=== PATIENT | female | born 1995 | race Caucasian/White ===

== ENCOUNTER 2017-10-21 13:03 | Emergency (ER) | payer OTHER, SELFPAY ==
[2017-10-21 13:04] VITALS: BP 103/50; PULSE 101; RESP 18; TEMP 36.9; O2SAT 98; BMI 31.6
--- NOTE | 2017-10-21 13:29 | ED.DCSUM_ITS ---
- ER Visit Summary Date of Service: 10/21/17 Chief Complaint: Dizziness, feels off balance History of Present Illness: The patient is a 22 F who presents with the above symptoms. She has had this intermittently for the past 8 days. She states it feels like the room is spinning sometimes. She has had nausea without a headache. She has no history of this in the past. At times it is worse when she lays on her left hand side. Denies any ear pressure. She took no medications for this at home. Physical Examination: Vital signs reviewed. HEENT does show bilateral nystagmus. Heart is regular rate and rhythm without murmurs. Lungs are clear to auscultation. Abdomen is soft and nontender. Extremities reveal no edema. Skin exam normal. Neurologic exam normal. Test Results: Urinalysis and hCG negative Emergency Department Course and Treatment: Patient was given meclizine and Zofran. She feels slightly improved. She states that ever since she moved here from [facility] she has had issues with her ears. I feel this is likely the issue causing a little bit of vertiginous symptoms. I will give her meclizine, Zofran and a decongestant for home. She will follow up with her PCP Treatment Plan: [] Disposition: Discharge Impression: Dizziness This note was generated with [employer] dictation software. It may contain incorrect words, spelling, and punctuation that were not noted in review of the chart prior to signing ED Disposition - Plan for ED Patient: Chief Complaint: Dizziness Referrals: [facility] Doctor,Out of [Primary Care Provider] -
[2017-10-21] MEDS: Meclizine HCl 25 MG Tablet PO (13:43)
[2017-10-21 14:02] LABS: Color, Urine Yellow (Yellow); Glucose, Dipstick Normal (Normal); Internal QC Validated? YES +Cl - CLEAR BKGD; Ketone-Dipstick Negative (Negative); Leukocyte Esterase-Dipstick 25 /ul (Negative); Nitrite-Dipstick Negative (Negative); Occult Blood-Urine Negative /ul (Negative); Protein-Dipstick Negative (Negative); Specific Gravity, Urine 1.015 (1.002-1.030); Urine Bilirubin Dipstick Negative (Negative); Urine Clarity Clear (Clear); Urine Urobilinogen Normal (Normal)
[2017-10-21 14:05] LABS: Pregnancy, Urine Negative Negative
[2017-10-21 14:11] LABS: Bacteria RARE /hpf (None Seen); Red Blood Cells-Urine 0-5 SEEN /hpf (0-5); Squamous Epithelial Cells - UA 0-5 SEEN /hpf (5-10); White Blood Cells 0-5 SEEN /hpf (0-5)
[2017-10-21 14:12] LABS: Mucous, Urine 1+ /hpf (<or=2+)
--- NOTE | 2017-10-21 14:36 | ED.DEP ---
ED Disposition - Plan for ED Patient: Disposition: Home or Assisted Living Chief Complaint: Dizziness Instructions: ED BPV Vertigo Prescriptions: proMETHazine tablet [Phenergan] 25 mg PO Q6H PRN PRN #10 tab PRN Reason: Nausea Meclizine HCl [Antivert] 25 mg PO TID #20 tab Pseudoephedrine HCl [Sudafed] 30 mg PO TID #20 tab Referrals: [facility] Doctor,Out of [Primary Care Provider] -
[2017-10-21 14:46] VITALS: BP 100/67; PULSE 72; RESP 18
== END 2017-10-21 14:47 | disposition home or self-care (01) ==
PROVIDERS: Emergency Provider Emergency Medicine
DX: R42 Dizziness and giddiness (principal); R11.0 Nausea
CPT/HCPCS: 81001; 81025; 99283

== ENCOUNTER 2018-03-08 09:38 | Emergency (ER) | payer OTHER, SELFPAY ==
[2018-03-08 09:39] VITALS: BP 119/67; PULSE 109; RESP 18; TEMP 37; O2SAT 98; BMI 31.0
[2018-03-08] MEDS: 0.9% Normal Saline 1,000 ML 999 ML IV (10:52)
[2018-03-08] MEDS: Ketorolac 30 MG/ML Syringe IV (10:52)
--- NOTE | 2018-03-08 11:21 | ED.DCSUM_ITS ---
- ER Visit Summary Date of Service: 03/08/18 Chief Complaint: Sore throat History of Present Illness: The patient is a 23 F who presents with sore throat. For 2 and half weeks she has had fever sore throat myalgias and fatigue. She was recently diagnosed with mononucleosis. She has not had a fever for the past few days. She states that her fatigue and pain have worsened. She is able to swallow. She has been able to tolerate ibuprofen tablets and liquids. She states she is having difficulty sleeping because she feels that she cannot breathe when she lays flat. Physical Examination: Afebrile heart rate 109 vitals otherwise normal Patient does have posterior oropharyngeal erythema with symmetric tonsillar enlargement and exudates her airway is patent and uvula is midline she does not have trismus Heart regular rhythm slightly tachycardic Lungs are clear Abdomen soft I do not appreciate hepatosplenomegaly although examination is limited due to body habitus Test Results: Not indicated Emergency Department Course and Treatment: Patient was symptomatically treated with IV fluids Decadron and Toradol. She did develop some nausea after administration of medications and Zofran was ordered however by the time I reevaluated the patient she states her nausea and actually resolved and she did not want further medications. At this point she was advised to follow-up with her primary care physician as needed and understands to return for new or worsening symptoms and was discharged home. Treatment Plan: [] Disposition: Discharge Impression: Mononucleosis This note was generated with [employer] dictation software. It may contain incorrect words, spelling, and punctuation that were not noted in review of the chart prior to signing ED Disposition - Plan for ED Patient: Chief Complaint: Sore Throat Referrals: [facility] Doctor,Out of [Primary Care Provider] -
--- NOTE | 2018-03-08 11:21 | ED.DEP ---
ED Disposition - Plan for ED Patient: Chief Complaint: Sore Throat Instructions: ED Mononucleosis Referrals: [facility],Out of [Primary Care Provider] -
[2018-03-08 11:54] VITALS: BP 103/57; PULSE 61; RESP 16; O2SAT 98
== END 2018-03-08 11:57 | disposition home or self-care (01) ==
LOC: ED 10:18
PROVIDERS: Emergency Provider Emergency Medicine
DX: B27.90 Infectious mononucleosis, unspecified without complication (principal); F32.9 Major depressive disorder, single episode, unspecified; F41.9 Anxiety disorder, unspecified
CPT/HCPCS: 96361; 96374; 96375; 99283; J2405

== ENCOUNTER → 2018-05-21 16:32 | Outpatient (CLI) | payer OTHER, SELFPAY ==
[2018-05-21 17:23] LABS: Absolute Lymphocyte Count 1.99 X10^3/ul (0.83-4.51); Absolute Neutrophil Count 4.5 X10^3/uL (2.0-7.7); Basophil# 0.04 X10^3/uL; Basophil% 0.6 % (0-1); Eosinophil# 0.16 X10^3/uL; Eosinophils% 2.3 % (0-5); Hematocrit 38.5 % (37-47); Hemoglobin 12.7 g/dl (12.0-15.0); Lymphocyte # 1.99 X10^3/ul (4.0); Lymphocyte % 28.2 % (19-41); Mean Corpuscular Hgb 27.1 pg (27.0-32.0); Mean Corpuscular Volume 82.3 fL (81-99); Mean Platelet Vol. 10.5 fl (6.2-12.0); Monocyte% 5.7 % (0-10); Neutrophil # 4.45 X10^3/uL (2.7-7.7); Neutrophil % 63.1 % (47-70); Platelet Count 208 K/mm3 (150-450); RBC Distribution Width CV 12.7 % (11.6-14.6); RBC Distribution Width SD 37.7 fl (35.1-43.9); Red Blood Count 4.68 M/mm3 (4.2-5.4); White Blood Count 7.1 K/mm3 (4.4-11.0)
[2018-05-21 17:26] LABS: POSITIVE COUNT NO; POSITIVE DIFFERENTIAL NO; POSITIVE MORPHOLOGY NO
[2018-05-21 17:39] LABS: Internal QC Validated? YES +Cl - CLEAR BKGD; Monotest POSITIVE (Negative)
[2018-05-21 17:40] LABS: ALB/GLOB Ratio 0.9 RATIO (0.9-2.4); AST(SGOT) 13 U/L (15-37); Alanine Aminotransfer ALT/SGPT 18 U/L (13-56); Albumin, Serum 3.7 g/dL (3.2-5.0); Alkaline Phosphatase 83 U/L (45-117); Anion Gap 7 (5-15); BUN 15 mg/dL (7-18); BUN/Creat Ratio 21.2 RATIO (10-20); Calcium,Total 8.6 mg/dL (8.5-10.1); Chloride 106 mmol/L (98-107); Creatinine, Serum 0.71 mg/dL (0.55-1.02); EST Glomerular Filtration Rate 107 mL/min (>60); Est Glom Filt Rate - Afr Amer 129 mL/min (>60); Globulin 4.2 g/dL (2.2-4.2); Glucose 89 mg/dL (74-106); Potassium 3.6 mmol/L (3.5-5.1); Protein, Total 7.9 g/dL (6.4-8.2); Sodium Level 140 mmol/L (136-145)
== END ==
DX: J02.9 Acute pharyngitis, unspecified (principal)
CPT/HCPCS: 36415; 80053; 85025; 86308; 87880

== ENCOUNTER → 2018-06-02 16:17 | Outpatient (CLI) | payer OTHER, SELFPAY ==
[2018-06-02 14:51] VITALS: BMI 32.8
[2018-06-02 17:13] LABS: Absolute Lymphocyte Count 1.95 X10^3/ul (0.83-4.51); Absolute Neutrophil Count 3.9 X10^3/uL (2.0-7.7); Basophil# 0.02 X10^3/uL; Basophil% 0.3 % (0-1); Eosinophil# 0.19 X10^3/uL; Hematocrit 37.7 % (37-47); Hemoglobin 12.3 g/dl (12.0-15.0); Lymphocyte # 1.95 X10^3/ul (4.0); Lymphocyte % 30.4 % (19-41); Mean Corp Hgb Conc 32.6 g/gl (32-36); Mean Corpuscular Volume 82.7 fL (81-99); Mean Platelet Vol. 10.9 fl (6.2-12.0); Monocyte# 0.39 X10^3/uL; Monocyte% 6.1 % (0-10); Neutrophil # 3.86 X10^3/uL (2.7-7.7); Platelet Count 203 K/mm3 (150-450); RBC Distribution Width CV 12.7 % (11.6-14.6); RBC Distribution Width SD 37.9 fl (35.1-43.9); Red Blood Count 4.56 M/mm3 (4.2-5.4); White Blood Count 6.4 K/mm3 (4.4-11.0)
[2018-06-02 17:17] LABS: POSITIVE COUNT NO; POSITIVE DIFFERENTIAL NO; POSITIVE MORPHOLOGY NO
[2018-06-02 17:30] LABS: T4 Free Direct 1.05 ng/dL (0.76-1.46)
--- OUTSIDE RECORDS SUMMARY | 2018-09-04 09:03 | XMS RPT_ITS ---
:1995 Author Organization OHIP Care Team Providers Name Role Phone Radha Ceron Attending Unavailable DOCTOR, OUT OF TOWN Referring Unavailable Radha Ceron Attending Unavailable Radha Ceron Referring Unavailable SHANTI PENA Primary Care Unavailable Irvin Sharp Attending Unavailable SHANTI PENA Primary Care Unavailable SHANTI PENA Primary Care Unavailable Xavi Neumann Attending Unavailable SHANTI PENA Attending Unavailable SHANTI PENA Referring Unavailable SHANTI PENA Primary Care Unavailable Radha Ceron Attending Unavailable Radha Ceron Referring Unavailable SHANTI PENA Primary Care Unavailable PROBLEMS PROBLEMS DATE TYPE CONDITION / CODE ATTENDING STATUS SOURCE 06/02/2018 Unknown Z01.411 - Encounter Jie, Active Yas for gynecological 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 / Repository E01.0(ICD-10) 06/02/2018 Unknown F41.9 - Anxiety Jie, Active [place] disorder, Radha [facility] [place] unspecified / Hospital F41.9(ICD-10) Repository PROCEDURES PROCEDURES No Procedure Records FoundRESULTS RESULTS THYROID Observed: 06/09/2018 Status: F Source: VALMY 10:23 AM [facility] REPOSITORY [facility] Imaging Services [address] [place] [address] Thyroid MR#: [id number] Acct: [id number] Name: FREEDOM JOSEPH Rep #: [id number] : 1995 F 23 From: Neil Hartmann MD PCP: OUT OF TOWN DOCTOR Status: REG CLI Study: Thyroid Date of Exam: 06/09/18 Exam# [id number] Ordering Dr: Radha Ceron MD STUDY: THYROID ULTRASOUND REASON FOR EXAM: Female, 23 years old. Thyromegaly. TECHNIQUE: Ultrasound evaluation of the thyroid was performed with real-time and static luis-scale imaging. COMPARISON: None. FINDINGS: RIGHT LOBE: The right lobe of the thyroid gland measures 4.5 x 1.7 x 1.6 cm. There is a homogeneous echotexture. There are no demonstrated solid, cystic or complex lesions. LEFT LOBE: The left lobe of the thyroid gland measures 4.3 x 1.5 x 1.4 cm. There is a homogeneous echotexture. There are no demonstrated solid, cystic or complex lesions. ISTHMUS: The isthmus measures 3 mm. The regional lymph nodes are normal. US/Thyroid IMPRESSION: Normal ultrasound examination of the thyroid. Electronically Signed: Kilo Hartmann MD at 15:54 EST , Service support , CC: OUT OF TOWN DOCTOR; Radha Ceron MD Child Watch Attendant: Signed CBC W/DIFF, AUTOMATED Collected: 06/02/2018 Status: F Source: YAS 4:27 PM [facility] REPOSITORY TYPE CODE TESTS RESULT OUT OF RANGE REFERENCE UNITS LAB L100.1000 4.4-11.0 K/mm3 Normal WBC 6.4 LAB L100.1200 4.2-5.4 M/mm3 Normal RBC 4.56 LAB L100.1300 12.0-15.0 g/dl Normal HGB 12.3 LAB L100.1400 37-47 % Normal HCT 37.7 LAB L100.1500 81-99 fL Normal MCV 82.7 LAB L100.1600 27.0-32.0 pg Normal MCH 27.0 LAB L100.1700 32-36 g/gl Normal MCHC 32.6 LAB L100.1810 11.6-14.6 % Normal RDW CV 12.7 LAB L100.1820 35.1-43.9 fl Normal RDW SD 37.9 LAB L100.1900 150-450 K/mm3 Normal PLT 203 LAB L100.2000 6.2-12.0 fl Normal MPV 10.9 LAB L100.2100 47-70 % Normal NEUT% 60.0 LAB L100.2200 19-41 % Normal LY% 30.4 LAB L100.2300 0-10 % Normal MONO% 6.1 LAB L100.2400 0-5 % Normal EO% 3.0 LAB L100.2500 0-1 % Normal BASO% 0.3 LAB L100.2550 0.0-0.9 % Normal IM GRAN % 0.200 Result Comment: IG% - Immature Granulocytes (promyelocytes, myelocytes and metamyelocytes) > 1% indicates that a LEFT SHIFT is Present. LAB L100.2620 2.0-7.7 X10 3/uL Normal Absolute Neut 3.9 LAB L100.2720 0.83-4.51 X10 3/ul Normal Absolute Lymph 1.95 Performed By: #### L100.0100 #### [facility] [address] [place], [address] T4 FREE DIRECT Collected: 06/02/2018 Status: F Source: YAS 4:27 PM [facility] REPOSITORY TYPE CODE TESTS RESULT OUT OF RANGE REFERENCE UNITS LAB L506.0400 0.76-1.46 ng/dL Normal T4 FREE 1.05 DIRECT Performed By: #### L506.0400 #### [facility] [address] [place], [address] INSTRUMENT LENS GENERATOR OFFICE VISIT Observed: 06/02/2018 Status: F Source: VALMY REPORT 4:08 PM [facility] REPOSITORY [facility] [address] [place] [address] OFFICE VISIT Date of Service: 06/02/18 MR#: [id number] Acct: [id number] Name: FREEDOM JOSEPH Rep #: [id number] : 1995 Provider: Radha Ceron MD Age/Sex: 23/F Location: [facility] Status: Signed Intake Vital Signs06/02/18 Height 5 ft 5 in 06/02/18 Weight: 197 lb 4 oz 06/02/18 Body Mass Index (BMI) 32.8 06/02/18 Blood Pressure 104/66 Intake Visit Reasons: ANNUAL Chief Complaint: NEW annual Oil Lease Broker Required: No Is patient in pain?: No Allergies No Known Allergies Allergy (Verified 06/02/18 14:51) Medications citalopram 20 mg tablet 20 mg PO DAILY #30 tab 06/02/18 [Rx Confirmed 06/02/18] Is last menstrual period known: No Post menopausal: No Patient : No : No PFSH Medical History Anxiety with depression (Acute) Surgical History delivery delivered (Acute) Family History Grandfather Heart disease Cancer melanoma Diabetes Grandmother Cancer uterine cancer Aunt Cancer Unknown Cancer cervical Social History Smoking Status: Never smoker alcohol intake: never substance use type: marijuana caffeine: Yes what type of physical activity do you participate in: none seatbelt use: always do you feel safe at home: Yes additional social history: Noel TOMPKINS 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 DateName GA/Weeks Outcome Route Bth WeighInfant GeLabor LgtAnesthesiDel LocatProvider FOB t n h a n Delivery Date: On 06/02/18 @ 15:35 Radha Ceron pushed 8 hours, had bilateral neuropathy and son had HIE Delivery Date: No notes to display HPI ANNUAL: Details: FREEDOM JOSEPH is a 23 year old who presents for annual exam. discussed anxiety issues, major life changes just moved here in august. family in [place]. Last PAP: 07/03 History of abnormal PAP: no Female Reproductive History Cycle Length: 21-35 Bleeding Duration: 4 Control Method: vasectomy Questions: Metorrhagia: No, Sexually active: Yes, Dyspareunia: No, PCB: No ROS Const Constitutional: Reports as per HPI; denies poor appetite, fatigue, increased appetite, weight gain or weight loss Cardio Card: Denies chest pain Resp Resp: Denies dyspnea or cough GI GI: Reports as per HPI; denies bloating, abdominal pain, constipation, vomiting or nausea : Reports as per HPI and other; denies blood in urine, vaginal odor, vaginal itching, vaginal dryness, vaginal discharge, urinary urgency, urinary incontinence, urinary frequency, pelvic pain, painful urination, difficulty urinating, prolapse symptoms or nipple discharge Skin Skin/Breast: Denies breast pain, breast skin changes, nipple discharge, breast lump or changing lesions Exam Const General: cooperative, healthy appearing, comfortable, no acute distress, well developed, well groomed [facility] Head: normal to inspection, normocephalic Ears: hearing grossly normal bilaterally, external ears normal Nose: external nose normal Face and sinus: normal facial exam Neck Neck: normal visual inspection, full ROM, no lymphadenopathy Thyroid: diffusely enlarged Chest Chest palpation AND inspection: normal inspection of the chest Breast inspection: normal inspection of the breasts, normal inspection of the axillae Breast palpation: normal palpation of the breasts, normal palpation of the axillae, no axillary lymphadenopathy Resp Effort AND Inspection: normal respiratory effort GI Inspection: normal to inspection, non-distended Palpation: no guarding, soft, no hepatosplenomegaly General: bladder normal to palpation External Female Exam: normal external appearance, normal appearance of the urethra, no lesions Urethra: normal appearance of the urethra, normal palpation Speculum Exam - Vagina: normal appearance of the vagina, normal vaginal discharge Speculum Exam - Cervix: normal appearance of the cervix, no cervical discharge, no lesions, nontender Bimanual Exam- Vagina AND Uterus: No cervical tenderness, normal bimanual exam, uterine size normal, bladder normal to palpation, uterine mobility normal, uterine consistency normal, uterus non-tender, no cervical motion tenderness Bimanual Exam- Adnexa, other: normal adnexae, no adnexal masses, adnexae non-tender Skin General: no rashes or lesions noted Neuro General: alert, moves all extremities, no focal motor deficits Extrem General: no pedal edema, normal to inspection Psych Appearance: grossly normal Mental Status: mental status grossly normal Affect: normal affect Speech and Movement: speech and movement normal Attitude: cooperative Assessment AND Plan Problems 1. Encounter for gynecological examination with abnormal finding Z01.411 2. Thyromegaly E01.0 us and labs 3. Anxiety F41.9 increase celexa, recommend counseling and support Plan Cervical cancer screening: pap 07/03 u pto date Breast cancer screening: clinical STD prevention and contraceptive options including their risks, benefits, and alternatives were reviewed with the patient and she chooses: none Encouraged maintenance of a healthy weight and active lifestyle and handout given. Calcium/vitamin D recommendations provided. Annual exam handout including recommendations for good health guidelines and basic screening information given. Problem list up to date, see problem list details for any additional plan information. follow up in one year for annual health maintenance exam or sooner if needed. Medications Changed: Coding Level of Care Code Off vis,new,prev 18-39yrs Diagnoses Encounter for gynecological examination with abnormal finding Z01.411 Gynecological examination findings: abnormal findings PRESENT Thyromegaly E01.0 Anxiety F41.9 06/02/18 1608 <Electronically signed by Radha Ceron MD> Date Radha Ceron MD Cosigner Signature: Date (if applicable) CC: CBC W/DIFF, AUTOMATED Collected: 05/21/2018 Status: F Source: YAS 4:46 PM [facility] REPOSITORY TYPE CODE TESTS RESULT OUT OF RANGE REFERENCE UNITS LAB L100.1000 4.4-11.0 K/mm3 Normal WBC 7.1 LAB L100.1200 4.2-5.4 M/mm3 Normal RBC 4.68 LAB L100.1300 12.0-15.0 g/dl Normal HGB 12.7 LAB L100.1400 37-47 % Normal HCT 38.5 LAB L100.1500 81-99 fL Normal MCV 82.3 LAB L100.1600 27.0-32.0 pg Normal MCH 27.1 LAB L100.1700 32-36 g/gl Normal MCHC 33.0 LAB L100.1810 11.6-14.6 % Normal RDW CV 12.7 LAB L100.1820 35.1-43.9 fl Normal RDW SD 37.7 LAB L100.1900 150-450 K/mm3 Normal PLT 208 LAB L100.2000 6.2-12.0 fl Normal MPV 10.5 LAB L100.2100 47-70 % Normal NEUT% 63.1 LAB L100.2200 19-41 % Normal LY% 28.2 LAB L100.2300 0-10 % Normal MONO% 5.7 LAB L100.2400 0-5 % Normal EO% 2.3 LAB L100.2500 0-1 % Normal BASO% 0.6 LAB L100.2550 0.0-0.9 % Normal IM GRAN % 0.100 Result Comment: IG% - Immature Granulocytes (promyelocytes, myelocytes and metamyelocytes) > 1% indicates that a LEFT SHIFT is Present. LAB L100.2620 2.0-7.7 X10 3/uL Normal Absolute Neut 4.5 LAB L100.2720 0.83-4.51 X10 3/ul Normal Absolute Lymph 1.99 Performed By: #### L100.0100 #### [facility] [address] [place], [place], [address] Observed: 05/21/2018 Status: F Source: YAS STREP A (THROAT 4:46 PM [facility] RAPID MIGUEL ÁNGEL) REPOSITORY Strep A Rapid Rapid Strep A Screen NEGATIVE A Disk (Conf. Cult) Negative for Strep Group A : All NEGATIVE screens will be confirmed with a culture. Performed By: #### M100.676 #### [facility] [address] [place], [address] MONOTEST Collected: 05/21/2018 Status: F Source: VALMY 4:46 PM [facility] REPOSITORY TYPE CODE TESTS RESULT OUT OF REFERENCE UNITS RANGE LAB L700.5700 Negative High MONO POSITIVE Performed By: #### L700.5500 #### [facility] [address] [place], [address] COMPREHENSIVE METABOLIC Collected: 05/21/2018 Status: F Source: [facility] 4:46 PM [facility] REPOSITORY TYPE CODE TESTS RESULT OUT OF RANGE REFERENCE UNITS LAB L501.0100 74-106 mg/dL Normal GLU 89 Result Comment: Please note revised GLUCOSE reference range effective 2017. LAB L501.1000 7-18 mg/dL Normal BUN 15 LAB L501.1100 0.55-1.02 mg/dL Normal CREAT,SERUM 0.71 Result Comment: The validity of the calculated GFR AND GFRAA in patients over 70 years has not been determined. Clinical correlation is essential. LAB L501.1110 >60 mL/min Normal EST GFR 107 Result Comment: Non- GFR Calc LAB L501.1115 >60 mL/min Normal EST GFR - AA 129 Result Comment: GFR Calc LAB L501.1300 10-20 RATIO High BUN/CRE 21.2 LAB L501.1500 6.4-8.2 g/dL T Normal PROT 7.9 LAB L501.1800 3.2-5.0 g/dL Normal ALB 3.7 LAB L501.1950 2.2-4.2 g/dL Normal GLOB 4.2 LAB L501.2000 0.9-2.4 RATIO Normal A/G 0.9 LAB L501.2200 8.5-10.1 mg/dL CA Normal 8.6 LAB L501.4100 15-37 U/L Low AST 13 LAB L501.4305 45-117 U/L Normal ALK P 83 LAB L501.4405 13-56 U/L Normal ALT 18 LAB L501.4600 0.20-1.00 mg/dL T Normal BILI 0.30 LAB L501.5300 136-145 mmol/L NA Normal 140 LAB L501.5600 3.5-5.1 mmol/L K Normal 3.6 LAB L501.5900 98-107 mmol/L CL Normal 106 LAB L501.6100 21.0-32.0 mmol/L Normal CO2 27.0 LAB L501.6200 5-15 Normal GAP 7 Performed By: #### L500.4050 #### [facility] [address] [place], [address] EMERGENCY DEPARTMENT Observed: 03/08/2018 Status: F Source: VALMY SUMMARY 11:21 AM [facility] REPOSITORY [facility] Medical Records Department [address] [place] [address] Emergency Department Summary 03/08/18 1119 MR#: [id number] Acct: [id number] Name: FREEDOM JOSEPH Rep #: [id number] : 1995 23 From: Xavi Neumann MD PCP: OUT OF TOWN DOCTOR Status: REG ER - ER Visit Summary Date of Service: 03/08/18 Chief Complaint: Sore throat History of Present Illness: The patient is a 23 F who presents with sore throat. For 2 and half weeks she has had fever sore throat myalgias and fatigue. She was recently diagnosed with mononucleosis. She has not had a fever for the past few days. She states that her fatigue and pain have worsened. She is able to swallow. She has been able to tolerate ibuprofen tablets and liquids. She states she is having difficulty sleeping because she feels that she cannot breathe when she lays flat. Physical Examination: Afebrile heart rate 109 vitals otherwise normal Patient does have posterior oropharyngeal erythema with symmetric tonsillar enlargement and exudates her airway is patent and uvula is midline she does not have trismus Heart regular rhythm slightly tachycardic Lungs are clear Abdomen soft I do not appreciate hepatosplenomegaly although examination is limited due to body habitus Test Results: Not indicated Emergency Department Course and Treatment: Patient was symptomatically treated with IV fluids Decadron and Toradol. She did develop some nausea after administration of medications and Zofran was ordered however by the time I reevaluated the patient she states her nausea and actually resolved and she did not want further medications. At this point she was advised to follow-up with her primary care physician as needed and understands to return for new or worsening symptoms and was discharged home. Treatment Plan: [] Disposition: Discharge Impression: Mononucleosis This note was generated with [employer] dictation software. It may contain incorrect words, spelling, and punctuation that were not noted in review of the chart prior to signing ED Disposition - Plan for ED Patient: Chief Complaint: Sore Throat Referrals: [facility] ,Out of [Primary Care Provider] - What to do if you have Problems For any increased pain, shortness of breath, bleeding, nausea or vomiting, chest pain, or any unexpected problems, contact your Primary Care Provider. Call [facility] ([phone]) or report to the closest Emergency Room. Call 911 if necessary. 03/08/18 1121 <Electronically signed by Xavi Neumann MD> Date Xavi Neumann MD Cosigner Signature (If Indicated): Date CC: OUT OF TOWN DOCTOR DISCHARGE INSTRUCTION Observed: 03/08/2018 Status: F Source: YAS 11:21 AM [facility] REPOSITORY [facility] Medical Records Department [address] [place] [address] Discharge Instruction 03/08/18 1121 MR#: [id number] Acct: [id number] Name: FREEDOM JOSEPH Rep #: [id number] : 1995 23 From: Xavi Neumann MD PCP: OUT OF [facility] DOCTOR Status: REG ER ED Disposition - Plan for ED Patient: Chief Complaint: Sore Throat Instructions: ED Mononucleosis Referrals: [facility]uf[facility] LawOut of [Primary Care Provider] - What to do if you have Problems For any increased pain, shortness of breath, bleeding, nausea or vomiting, chest pain, or any unexpected problems, contact your Primary Care Provider. Call [facility] ([phone]) or report to the closest Emergency Room. Call 911 if necessary. 03/08/18 1121 <Electronically signed by Xavi Neumann MD> Date Xavi Neumann MD Cosigner Signature (If Indicated): Date CC: OUT OF TOWN DOCTOR DISCHARGE INSTRUCTION Observed: 10/21/2017 Status: F Source: VALMY 2:38 PM [facility] REPOSITORY [facility] Medical Records Department [address] [place] [address] Discharge Instruction 10/21/17 1436 MR#: [id number] Acct: [id number] Name: FREEDOM JOSEPH Rep #: [id number] : 1995 22 From: Irvin Sharp MD PCP: OUT OF TOWN DOCTOR Status: REG ER ED Disposition - Plan for ED Patient: Disposition: Home or Assisted Living Chief Complaint: Dizziness Instructions: ED BPV Vertigo Prescriptions: proMETHazine tablet [Phenergan] 25 mg PO Q6H PRN PRN #10 tab PRN Reason: Nausea Meclizine HCl [Antivert] 25 mg PO TID #20 tab Pseudoephedrine HCl [Sudafed] 30 mg PO TID #20 tab Referrals: [facility] Doctor,Out of [Primary Care Provider] - What to do if you have Problems For any increased pain, shortness of breath, bleeding, nausea or vomiting, chest pain, or any unexpected problems, contact your Primary Care Provider. Call [facility] ([phone]) or report to the closest Emergency Room. Call 911 if necessary. 10/21/17 1438 <Electronically signed by Irvin Sharp MD> Date Irvin Sharp MD Cosigner Signature (If Indicated): Date CC: OUT OF [facility] DOCTOR EMERGENCY DEPARTMENT Observed: 10/21/2017 Status: F Source: YAS SUMMARY 2:36 PM [facility] REPOSITORY [facility] Medical Records Department [address] [place] [address] Emergency Department Summary 10/21/17 1328 MR#: [id number] Acct: [id number] Name: FREEDOM JOSEPH Rep #: [id number] : 1995 22 From: Irvin Sharp MD PCP: OUT OF [facility] DOCTOR Status: REG ER - ER Visit Summary Date of Service: 10/21/17 Chief Complaint: Dizziness, feels off balance History of Present Illness: The patient is a 22 F who presents with the above symptoms. She has had this intermittently for the past 8 days. She states it feels like the room is spinning sometimes. She has had nausea without a headache. She has no history of this in the past. At times it is worse when she lays on her left hand side. Denies any ear pressure. She took no medications for this at home. Physical Examination: Vital signs reviewed. HEENT does show bilateral nystagmus. Heart is regular rate and rhythm without murmurs. Lungs are clear to auscultation. Abdomen is soft and nontender. Extremities reveal no edema. Skin exam normal. Neurologic exam normal. Test Results: Urinalysis and hCG negative Emergency Department Course and Treatment: Patient was given meclizine and Zofran. She feels slightly improved. She states that ever since she moved here from [facility] she has had issues with her ears. I feel this is likely the issue causing a little bit of vertiginous symptoms. I will give her meclizine, Zofran and a decongestant for home. She will follow up with her PCP Treatment Plan: [] Disposition: Discharge Impression: Dizziness This note was generated with Ncube Worldation software. It may contain incorrect words, spelling, and punctuation that were not noted in review of the chart prior to signing ED Disposition - Plan for ED Patient: Chief Complaint: Dizziness Referrals: [facility] Doctor,Out of [Primary Care Provider] - What to do if you have Problems For any increased pain, shortness of breath, bleeding, nausea or vomiting, chest pain, or any unexpected problems, contact your Primary Care Provider. Call [facility] ([phone]) or report to the closest Emergency Room. Call 911 if necessary. 10/21/17 1436 <Electronically signed by rIvin Sharp MD> Date Irvin Sharp MD Cosigner Signature (If Indicated): Date CC: OUT OF TOWN DOCTOR URINALYSIS, COMPLETE Collected: 10/21/2017 Status: F Source: YAS 1:50 PM [facility] REPOSITORY Order Comment: Order Date: 10/21/17 How was Urine Obtained? CLEAN CATCH TYPE CODE TESTS RESULT OUT OF RANGE REFERENCE UNITS LAB L400.3000 Yellow COLOR Normal Yellow LAB L400.3050 Clear Normal CLARITY Clear LAB L400.3200 Normal mg/dl Normal GLUCOSE, UR Normal LAB L400.3300 Negative mg/dL Normal BILIRUBIN URINE Negative LAB L400.3400 Negative mg/dl Normal KETONE UR Negative LAB L400.3465 1.002-1.030 Normal SP.GR. DIPSTX 1.015 LAB L400.3550 5.0 - 8.0 pH UR Normal 8.0 LAB L400.3600 Negative mg/dl PROT Normal DIPSTX Negative LAB L400.3700 Normal mg/dl Normal UROBILI Normal LAB L400.3750 Negative Normal NITRITE UR Negative LAB L400.3780 Negative /ul Normal OCCULT BLOOD-UR Negative LAB L400.3800 Negative /ul High LEUK 25 ESTERASE LAB L400.4050 0-5 /hpf WBC Normal 0-5 SEEN LAB L400.4100 0-5 /hpf Normal RBC-UA 0-5 SEEN LAB L400.4150 5-10 /hpf SQUAM Normal EPI 0-5 SEEN LAB L400.4300 None Seen /hpf Normal BACTERIA RARE LAB L400.4350 <or=2+ /hpf 1+ Normal MUCUS, URINE Performed By: #### L400.0001 #### [facility] [address] [facility] [place], [address] ,URINE Collected: 10/21/2017 Status: F Source: YAS 1:50 PM [facility] REPOSITORY Order Comment: Order Date: 10/21/17 TYPE CODE TESTS RESULT OUT OF REFERENCE UNITS RANGE LAB L400.8000 Negative Normal HCGUQUAL Negative Result Comment: Very dilute urine specimens, as indicated by a low specific gravity, may not contain abrasives sales representative levels of hCG. If is still suspected, a first morning urine specimen should be collected 48 hours later and tested. Performed By: #### L400.7600 #### [facility] [address] [place], [address] ALLERGIES ALLERGIES DATE TYPE / CODE NAME / CODE REACTION SEVERITY SOURCE 06/02/2018 Drug No Known Unknown [facility] Allergy/4160 Allergies/F00 Hospital 10178(SNOMED 5665999(RXNOR Repository CT) M) ENCOUNTERS ENCOUNTERS ADMIT/DISCHARGE ACCOUNT ADMITTING ENCOUNTER LOCATION SOURCE NUMBER CLASS 06/09/2018 [id number] Ambulatory [place] 1 [facility] ing:US Repository 06/02/2018 [id number] Ambulatory Yas [place] 6 [facility] ing:LAB Repository 06/02/2018/ [id number] Ambulatory BMS[facility]:B Yas 8 2 [facility] Repository 05/21/2018 [id number] Ambulatory Yas [place] 4 [facility] ing:LAB Repository 03/08/2018/ [id number] Emergency Yas [place] 8 7 [facility] ing:ED Repository 10/21/2017/ [id number] Emergency Yas Yas 8 2 [facility] ing:ED Repository PAYERS PAYERS ENCOUNTER GUARANTOR PAYER SUBSCRIBER SOURCE 06/09/2018 FREEDOM [id number] [facility] [id number]: Repository [id number]: [phone] [id number] [phone] (HP) Date:[id number] [address] [address]NC: 06/09/2018 Secondary NOT GIVENUNK [place] Insurance:SELF PAY [facility] Number: Effective Repository Date:2018-06-02 06/02/2018 FREEDOM Mcnair Primary COLLEENOPHER J [place] [id number] Insurance:MEDICAL ARNOLDDOB: [facility] [id number] Number: Repository [id number]: [phone] [id number] [phone] (HP) Date:[id number] [address] [address]CE: 06/02/2018 Secondary NOT GIVENUNK Yas Insurance:SELF PAY [facility] Number: Effective Repository Date:2018-06-02 06/02/2018 FREEDOM Mcnair Primary COLLEENOPHER Donn Yas [id number] Insurance:MEDICAL ARNOLDDOB: [facility] [id number] Number: Repository [id number]: [phone] [id number] [phone] (HP) Date:[id number] [address] [address]FC: 06/02/2018 Secondary NOT GIVENUNK Yas Insurance:SELF PAY [facility] Number: Effective Repository Date:2018-06-02 05/21/2018 FREEDOM Mcnair Primary COLLEENOPHER J Yas [id number] Insurance:MEDICAL ARNOLDDOB: [facility] [id number] Number: Repository [id number]: [phone] [id number] [phone] (HP) Date:[id number] [address] [address]OW: 05/21/2018 Secondary NOT GIVENUNK Yas Insurance:SELF PAY [facility] Number: Effective Repository Date:2018-05-21 03/08/2018 FREEDOM Mcnair Primary JALIL Womack [id number] [facility] [id number], [place] Number: Repository [id number]: [phone] [id number] [phone] () Date:[id number] [address] [address]TF: 03/08/2018 Secondary NOT GIVENUNK [place] Insurance:SELF PAY [facility] Number: Effective Repository Date:2018-03-08 10/21/2017 FREEDOM Mcnair [facility] JALIL Womack [id number] Insurance:[place], [place] Number: Repository [id number]: [phone] [id number] [phone] () Date:[id number] [address]VC: 10/21/2017 Secondary NOT GIVENUNK [place] Insurance:SELF PAY [facility] Number: Effective Repository Date:2017-10-21
== END ==
PROVIDERS: Referring Provider Obstetrics & Gynecology; Visit Provider Obstetrics & Gynecology
DX: E01.0 Iodine-deficiency related diffuse (endemic) goiter (principal)
CPT/HCPCS: 36415; 84439; 85025

== ENCOUNTER → 2018-06-09 10:21 | Outpatient (CLI) | payer OTHER, SELFPAY ==
[2018-06-02 14:51] VITALS: BMI 32.8
--- NOTE | 2018-06-09 10:23 | US_ITS ---
STUDY: THYROID ULTRASOUND REASON FOR EXAM: Female, 23 years old. Thyromegaly. TECHNIQUE: Ultrasound evaluation of the thyroid was performed with real-time and static luis-scale imaging. COMPARISON: None. FINDINGS: RIGHT LOBE: The right lobe of the thyroid gland measures 4.5 x 1.7 x 1.6 cm. There is a homogeneous echotexture. There are no demonstrated solid, cystic or complex lesions. LEFT LOBE: The left lobe of the thyroid gland measures 4.3 x 1.5 x 1.4 cm. There is a homogeneous echotexture. There are no demonstrated solid, cystic or complex lesions. ISTHMUS: The isthmus measures 3 mm. The regional lymph nodes are normal. US/Thyroid IMPRESSION: Normal ultrasound examination of the thyroid. Electronically Signed: Kilo Hartmann MD at 15:54 EST , Service support ,
== END ==
LOC: US 10:21
PROVIDERS: Referring Provider Obstetrics & Gynecology; Visit Provider Obstetrics & Gynecology
DX: E01.0 Iodine-deficiency related diffuse (endemic) goiter (principal)
CPT/HCPCS: 76536

== ENCOUNTER → 2019-12-31 16:55 | Outpatient (CLI) | payer OTHER, SELFPAY ==
[2019-12-31 08:41] VITALS: BMI 32.8
[2019-12-31 20:45] LABS: Chlamydia Trachomatis by PCR Negative (Negative); Neisserai gonorrhoeae by PCR Negative (Negative); Probe Check PASS; Sample Adequacy Control PASS; Specimen Processing Control PASS
[2020-01-06 15:38] LABS: HPV Reflexed? NOT INDICATED
== END ==
PROVIDERS: Referring Provider Nurse Practitioner Women's Health; Visit Provider Nurse Practitioner Women's Health
DX: Z11.3 Encounter for screening for infections with a predominantly sexual mode of transmission (principal); Z12.4 Encounter for screening for malignant neoplasm of cervix; Z01.411 Encounter for gynecological examination (general) (routine) with abnormal findings
CPT/HCPCS: 87491; 87591; 88175; G0145

== ENCOUNTER 2020-03-04 01:57 | Emergency (ER) | payer OTHER, SELFPAY ==
[2019-12-31 08:41] VITALS: BMI 32.8
[2020-03-04 01:58] VITALS: BP 132/89; PULSE 118; RESP 12; TEMP 36.9; O2SAT 98; BMI 36.0
--- NOTE | 2020-03-04 02:06 | EKG12_ITS ---
Test Reason : DYSRHYTHMIA Blood Pressure : / mmHG Vent. Rate : 106 BPM Atrial Rate : 106 BPM P-R Int : 120 ms QRS Dur : 078 ms QT Int : 338 ms P-R-T Axes : 059 012 053 degrees QTc Int : 448 ms Sinus tachycardia Nonspecific ST abnormality Abnormal ECG Confirmed by JUANY DEWITT, HEIDE ([id number]), newspaper editor managing JAMAAL MCGEE ([id number]) on 03/07/2020 1:39:31 PM Referred By: STERLING Confirmed By:HEIDE HARRINGTON MD
--- NOTE | 2020-03-04 02:09 | ED.VISSUMM ---
- ER Visit Summary Date of Service: 03/04/20 Chief Complaint: [Heart racing, feeling shaky, and headache] History of Present Illness: The patient is a 25 F [presents to the emergency department with symptoms that woke her up this morning. states that prior to going to work at 11 PM patient felt she was having a panic attack and was feeling shaky and nauseated and lightheaded. Patient took her citalopram before bed. She does have history of anxiety and panic attacks. Patient continues to feel shaky and feels like her heart is racing. Denies recent travel or surgery. She denies any COVID-19 exposures. She is currently on amoxicillin for strep throat. She denies any cough. 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 Patient also states that she has anxiety over health issues and when she started feeling lightheaded and dizzy with this panic attack she became more panicky. Physical Examination: [HEENT-PERRLA, EOMI. Cranial nerves II through XII grossly intact. TMs clear. Mucous membranes moist. No adenopathy. Patient has no pharyngeal erythema. No exudates. Uvula midline without trismus. Cardiovascular-regular rate and rhythm without murmur or ectopy Lungs-clear to auscultation, chest wall stable without crepitus or subcu emphysema Abdomen-normoactive bowel sounds, soft, nontender, no rebound or rigidity, no peritoneal signs. Neuro rjsy-diavlg-mlze and heel james testing within normal limits, negative Romberg, negative for drift, fundi benign Extremities-intact ?4, normal range of motion, normal pulses, atraumatic] Test Results: [EKG obtained arrival shows sinus rhythm with a ventricular rate of 106 bpm with some nonspecific ST changes. CBC with differential was normal. Chemistries unremarkable other than a slightly depressed potassium of 3.3. Troponin was less than 0.015. D-dimer was normal at 0.35.] Emergency Department Course and Treatment: [IV line established. Patient was given Ativan 1 mg IV. Patient did feel much calmer and significantly improved.] Treatment Plan: [Patient advised to follow-up with primary care physician party plan demonstrator for no doc within next 5 to 7 days.] Disposition: [Discharged home in stable condition.] Impression: [Anxiety reaction] This note was generated with [employer] dictation software. It may contain incorrect words, spelling, and punctuation that were not noted in review of the chart prior to signing ED Disposition - Plan for ED Patient: Referrals: Care Physician,No Primary [Primary Care Provider] -
[2020-03-04 02:24] LABS: Absolute Lymphocyte Count 2.56 X10^3/uL (0.83-4.51); Absolute Neutrophil Count 4.4 X10^3/uL (2.0-7.7); Basophil# 0.03 X10^3/uL; Basophil% 0.4 % (0-1); Eosinophil# 0.19 X10^3/uL; Eosinophils% 2.5 % (0-5); Hematocrit 39.5 % (37-47); Hemoglobin 12.9 g/dL (12.0-15.0); Lymphocyte # 2.56 X10^3/ul (4.0); Lymphocyte % 33.3 % (19-41); Mean Corp Hgb Conc 32.7 g/dL (32-36); Mean Corpuscular Hgb 26.9 pg (27.0-32.0); Mean Corpuscular Volume 82.3 fL (81-99); Mean Platelet Vol. 10.5 fl (6.2-12.0); Monocyte# 0.49 X10^3/uL; Monocyte% 6.4 % (0-10); NRBC Flagged by Analyzer 0 % (0-5); Neutrophil # 4.41 X10^3/uL (2.7-7.7); Neutrophil % 57.3 % (47-70); Platelet Count 211 K/mm3 (150-450); RBC Distribution Width CV 12.4 % (11.6-14.6); RBC Distribution Width SD 37.6 fl (35.1-43.9); White Blood Count 7.7 K/mm3 (4.4-11.0)
[2020-03-04] MEDS: LORazepam 2 MG/ML Syringe 1 MG IV ×2 (02:30→03:31)
[2020-03-04 02:36] LABS: D-Dimer Quantitative (DVT/PE) 0.35 FEU/ug/m (0.27-0.49)
[2020-03-04 02:43] LABS: Anion Gap 8 (5-15); BUN 12 mg/dL (7-18); BUN/Creat Ratio 13.9 RATIO (10-20); Calcium,Total 9.1 mg/dL (8.5-10.1); Chloride 108 mmol/L (98-107); Creatinine, Serum 0.87 mg/dL (0.55-1.02); EST Glomerular Filtration Rate 83 mL/min (>60); Est Glom Filt Rate - Afr Amer 101 mL/min (>60); Glucose 125 mg/dL (74-106); Potassium 3.3 mmol/L (3.5-5.1); Sodium Level 140 mmol/L (136-145)
[2020-03-04 03:05] VITALS: BP 114/70; PULSE 92; RESP 14; O2SAT 98
--- NOTE | 2020-03-04 03:20 | ED.DEP ---
ED Disposition - Plan for ED Patient: Instructions: ED Panic Attack Referrals: Care Physician,No Primary [Primary Care Provider] - John Acevedo III, MD [STAFF PHYSICIAN] - 5-7 Days
[2020-03-04 03:50] VITALS: BP 111/84; PULSE 96; RESP 18; O2SAT 96
== END 2020-03-04 03:51 | disposition home or self-care (01) ==
PROVIDERS: Emergency Provider Emergency Medicine
DX: F41.1 Generalized anxiety disorder (principal)
CPT/HCPCS: 80048; 84484; 85025; 85379; 93005; 99284; A4216

== ENCOUNTER → 2021-02-27 14:11 | Outpatient (CLI) | payer OTHER, SELFPAY ==
[2021-02-27 14:33] LABS: Absolute Lymphocyte Count 2.16 X10^3/uL (0.83-4.51); Absolute Neutrophil Count 7.7 X10^3/uL (2.0-7.7); Basophil# 0.03 X10^3/uL; Basophil% 0.3 % (0-1); Eosinophil# 0.16 X10^3/uL; Eosinophils% 1.5 % (0-5); Hematocrit 39.6 % (37-47); Hemoglobin 12.7 g/dL (12.0-15.0); Lymphocyte # 2.16 X10^3/ul (0.83-4.51); Lymphocyte % 20.2 % (19-41); Mean Corp Hgb Conc 32.1 g/dL (32-36); Mean Corpuscular Volume 84.1 fL (81-99); Mean Platelet Vol. 10.7 fl (6.2-12.0); Monocyte% 5.6 % (0-10); NRBC Flagged by Analyzer 0 % (0-5); Neutrophil # 7.67 X10^3/uL (2.7-7.7); Neutrophil % 71.9 % (47-70); Platelet Count 210 K/mm3 (150-450); RBC Distribution Width CV 13.1 % (11.6-14.6); RBC Distribution Width SD 40.1 fl (35.1-43.9); Red Blood Count 4.71 M/mm3 (4.2-5.4); White Blood Count 10.7 K/mm3 (4.4-11.0)
[2021-02-27 14:56] LABS: T4 Free Direct 1.02 ng/dL (0.76-1.46); Thyroid Stim Hormone (TSH) 0.79 uIU/mL (0.358-3.74)
[2021-02-27 15:34] LABS: Amphetamine Urine VISTA NEGATIVE (<1000 ng/mL); Barbiturate Urine VISTA NEGATIVE (< 200 ng/mL); Benzodiazepine Urine VISTA NEGATIVE (< 200 ng/mL); Cocaine Urine VISTA NEGATIVE (< 300 ng/mL); Ecstacy Urine VISTA NEGATIVE (< 500 ng/mL); Methadone Urine VISTA NEGATIVE (< 300 ng/mL); PCP Urine VISTA NEGATIVE (< 25 ng/mL); THC Urine VISTA POSITIVE (< 50 ng/mL); Vista UDS pH Range 6
[2021-02-27 15:34] LABS: HIV - WCH Non-Reactive (Nonreactive); Hepatitis B Surface Antigen Non-Reactive (Nonreactive); Hepatitis C Antibody Non-Reactive (Nonreactive); Rubella IgG Reactive (Nonreactive); Syphilis Antibodies Non-reactive
[2021-03-02 07:08] LABS: Chlamydia By Nucleic Acid AMP Negative (Negative)
[2021-03-02 21:05] LABS: Gonococcus By Nucleic Acid AMP Negative (Negative)
== END ==
PROVIDERS: Referring Provider Obstetrics & Gynecology; Visit Provider Obstetrics & Gynecology
DX: Z34.81 Encounter for supervision of other normal pregnancy, first trimester (principal); Z31.430 Encounter of female for testing for genetic disease carrier status for procreative management
CPT/HCPCS: 36415; 80307; 84439; 84443; 85025; 86703; 86762; 86780; 86803; 86850; 86900; 86901; 87086; 87088; 87340; 87491; 87591

== ENCOUNTER → 2021-04-24 13:49 | Outpatient (CLI) | payer OTHER, SELFPAY ==
[2021-04-24 17:09] LABS: Amphetamine Urine VISTA NEGATIVE (<1000 ng/mL); Barbiturate Urine VISTA NEGATIVE (< 200 ng/mL); Benzodiazepine Urine VISTA NEGATIVE (< 200 ng/mL); Cocaine Urine VISTA NEGATIVE (< 300 ng/mL); Ecstacy Urine VISTA NEGATIVE (< 500 ng/mL); Methadone Urine VISTA NEGATIVE (< 300 ng/mL); PCP Urine VISTA NEGATIVE (< 25 ng/mL); THC Urine VISTA POSITIVE (< 50 ng/mL); Vista UDS pH Range 5
== END ==
PROVIDERS: Visit Provider Nurse Practitioner Women's Health
DX: O99.321 Drug use complicating pregnancy, first trimester (principal); F12.11 Cannabis abuse, in remission; Z3A.14 14 weeks gestation of pregnancy
CPT/HCPCS: 80307

== ENCOUNTER 2021-06-22 14:04 | Outpatient (CLI) | payer MEDICAID, SELFPAY ==
[2021-06-22 14:45] LABS: Absolute Lymphocyte Count 1.61 X10^3/uL (0.83-4.51); Absolute Neutrophil Count 7.9 X10^3/uL (2.0-7.7); Basophil# 0.02 X10^3/uL; Basophil% 0.2 % (0-1); Eosinophil# 0.13 X10^3/uL; Eosinophils% 1.3 % (0-5); Hematocrit 32.7 % (37-47); Hemoglobin 10.8 g/dL (12.0-15.0); Lymphocyte # 1.61 X10^3/ul (0.83-4.51); Lymphocyte % 15.8 % (19-41); Mean Corpuscular Hgb 27.2 pg (27.0-32.0); Mean Corpuscular Volume 82.4 fL (81-99); Mean Platelet Vol. 10.2 fl (6.2-12.0); Monocyte# 0.48 X10^3/uL; Monocyte% 4.7 % (0-10); NRBC Flagged by Analyzer 0 % (0-5); Neutrophil # 7.87 X10^3/uL (2.7-7.7); Neutrophil % 77.3 % (47-70); Platelet Count 196 K/mm3 (150-450); RBC Distribution Width SD 39.3 fl (35.1-43.9); Red Blood Count 3.97 M/mm3 (4.2-5.4); White Blood Count 10.2 K/mm3 (4.4-11.0)
[2021-06-22 14:53] LABS: Glucose Challenge Gest 1H 50g 134 mg/dL (70-140)
[2021-06-26 09:07] LABS: HSV 1 By PCR Negative (Negative)
[2021-06-26 13:27] LABS: HSV 1 IgG < 0.91 index (0.00-0.90); HSV 2 By PCR Negative (Negative); HSV 2 IgG < 0.91 index (0.00-0.90)
== END 2021-06-22 23:59 | disposition short-term general hospital (02) ==
LOC: PAVLAB 14:06
PROVIDERS: Obstetrics & Gynecology; Referring Provider Obstetrics & Gynecology; Visit Provider Obstetrics & Gynecology
DX: O09.70 Supervision of high risk pregnancy due to social problems, unspecified trimester (principal); Z3A.00 Weeks of gestation of pregnancy not specified; Z13.1 Encounter for screening for diabetes mellitus; Z91.89 Other specified personal risk factors, not elsewhere classified
CPT/HCPCS: 82950; 85025; 86695; 86696; 87529

== ENCOUNTER 2021-08-31 16:16 | Outpatient (CLI) | payer MEDICAID, SELFPAY | END 2021-08-31 23:59 | disposition home or self-care (01) | LOC: LABSPEC 16:17 | PROVIDERS: Visit Provider Obstetrics & Gynecology | DX: O09.70 Supervision of high risk pregnancy due to social problems, unspecified trimester (principal) | CPT/HCPCS: 87081 ==

== ENCOUNTER 2021-09-04 18:50 | Outpatient (CLI) | payer MEDICAID, SELFPAY ==
--- NOTE | 2021-09-04 18:51 | US_ITS ---
STUDY: SECOND AND THIRD TRIMESTER OBSTETRICAL ULTRASOUND - LIMITED REASON FOR EXAM: Female, 26 years old. growth. LMP: 12/20/2020 PRIOR ULTRASOUND: None. TECHNIQUE: Transabdominal TECHNICAL QUALITY: Adequate. FINDINGS: There is a single intrauterine fetus. The fetus is in a cephalic presentation. There is demonstrated cardiac activity with a heart rate of 128 bpm. There is a normal amniotic fluid volume. The largest amniotic fluid pocket measures 2.99 cm. The amniotic fluid index (WANDA) is 10.1 cm. The placenta is posterior and left lateral and not low-lying. There are Grade 2 placental changes. The cervix measures 3 cm in length. BIOMETRY: BPD: 9.69 cm: 39 weeks, 1 days HC: 34.86 cm: 40 weeks, 3 days AC: 32.79 cm: 36 weeks, 4 days FL: 6.85 cm: 35 weeks, 1 days Age by LMP: 36 weeks, 6 days. ADEBAYO by LMP: 09/26/2021. age by current US: 37 weeks, 5 days. ADEBAYO by current US: 09/20/2021. Estimated weight: 3058 grams, +/- 459 grams, 56 percentile. Gender: Indeterminant US/OB Limited With Biometrics IMPRESSION: 1. Single live intrauterine at 37 weeks, 5 days. ADEBAYO is 09/20/2021. This is 6 days and expected gestational age by LMP. 2. EFW of 3058 g. 3. WANDA of 10.51 cm. 4. Posterior and left lateral grade 2 placenta. 5. VERTEX presentation. Electronically Signed: Sean Garg DO at 23:52 EDT ,
== END 2021-09-04 23:59 | disposition home or self-care (01) ==
LOC: US 18:50
PROVIDERS: Referring Provider Obstetrics & Gynecology; Visit Provider Obstetrics & Gynecology
DX: O26.849 Uterine size-date discrepancy, unspecified trimester (principal)
CPT/HCPCS: 76816

== ENCOUNTER 2021-09-19 07:20 | Inpatient (IN) | payer MEDICAID, SELFPAY ==
[2021-09-19] VITALS (92 sets, daily range): BP systolic 88–143; BP diastolic 45–77; PULSE 70–114; RESP 16–18; TEMP 36.3–37.4; O2SAT 93–99; BMI 36.8
--- NOTE | 2021-09-19 08:03 | HP.PCM.OB_ITS ---
HPI - General General Date of Admission: 09/19/21 HPI Narrative FREEDOM JOSEPH, is a 26 F who presents in active labor requesting trial of labor after . Patient has had regular contractions throughout the night no vaginal bleeding or loss of fluid admits good movement. Patient is now 6 cm upon admission. Maternal Data Information ADEBAYO Calculator Estimated Delivery Date Method Current WG Current Estimate 09/26/21 LMP (Certain) 39w 0d PFSH PFSH Medical History (Updated 09/19/21 @ 08:[address] Radha Ceron MD) Anxiety with depression Home Medications vitamins no.163-iron bis-gly 20 mg-folate no.10 1 mg tablet tab PO 01/16 11/04 [History Last Taken Unknown] citalopram 40 mg tablet 40 mg PO DAILY #90 tab 07/13/21 [Rx Last Taken Unknown] Allergy/AdvReac Type Severity Reaction Status Date / Time No Known Allergies Allergy Verified 09/14/21 14:53 Family History Grandfather Heart disease Cancer melanoma Diabetes Grandmother Cancer uterine cancer Aunt Cancer Unknown Cancer cervical Other Kidney disease Surgical History delivery delivered Social History current occupational status: employed Smoking Status: Former smoker alcohol intake: never substance use type: marijuana caffeine: Yes what type of physical activity do you participate in: none seatbelt use: always do you feel safe at home: Yes additional social history: BF: Eamon ([facility] age 4) History 3 Elective abortions Hx Para 2 Spontaneous abortions Hx # Term Pregnancies Ectopic pregnancies Hx # Pregnancies Multiple births # of living children 2 Past Pregnancies Del. Date Name GA/Weeks Outcome Route Bth Weight Infant Gen Labor Lgth Anesthesia Del Locatn Provider FOB Unknown 2013 Scooter 40 live - full term 8lbs 3oz [facility] Ok Rodney Unknown 2015 Trip 40 live - full term 8lbs 4oz Male epidural Austyn BALJEET Armenta Delivery Date: FTP Nichol Thomson Delivery Date: pushed 8 hours, had bilateral neuropathy and son had HIE; patient was paralyzed from the waist down did have inpatient and outpatient therapy Nichol Thomson Visit Details Expected Delivery Route/Plan plan RLTCS Plans Covid status: non immune, counseled regarding risk of covid in vs vaccination and declined vaccination Flu vaccine: declined Tdap vaccine: [] Rhogam: [] LARC form signed: [] Problem list reviewed and updated with the most current plan of care details and appropriate orders placed. Relevant counseling for the gestational age provided. Continue routine care and follow up unless otherwise noted in visit notes/problem list details OB Flowsheet Initial Weight: Not Recorded Date -?-?-?-?-?-?-?-?-?-?-?-?- EGA Weight BP Urine Prot -?-?-?-?-?-?-?-?-?-?-?-?- Glucose FHR FuHt Pres Dilation -?-?-?-?-?-?-?-?-?-?-?-?- Effaced St Visit Note 02/27/21 -?-?-?-?-?-?-?-?-?-?-?-?- 9w 6d 189 lb 116/66 -?-?-?-?-?-?-?-?-?-?-?-?- 170 -?-?-?-?-?-?-?-?-?-?-?-?- SM- CRL cons wit h LMP 03/29/21 -?-?-?-?-?-?-?-?-?-?-?-?- 14w 1d 192 lb 4 oz 110/70 Nega tive -?-?-?-?-?-?-?-?-?-?-?-?- Negative 150 -?-?-?-?-?-?-?-?-?-?-?-?- GP - no cramping or bleeding. PRR. Anatomy nl. 04/24/21 -?-?-?-?-?-?-?-?-?-?-?-?- 17w 6d 195 lb 4 oz 122/66 Nega tive -?-?-?-?-?-?-?-?-?-?-?-?- Negative 151 -?-?-?-?-?-?-?-?-?-?-?-?- MH-No VB, LOF. F eeling movement. Anatomy US 05/0205/26/21 -?-?-?-?-?-?-?-?-?-?-?-?- 22w 3d 200 lb 8 oz 108/70 Nega tive -?-?-?-?-?-?-?-?-?-?-?-?- Negative 154 -?-?-?-?-?-?-?-?-?-?-?-?- JV- no lof, vagi nal bleeding, or cramping. hsv titers and gct ordered. 06/22/21 -?-?-?-?-?-?-?-?-?-?-?-?- 26w 2d 206 lb 8 oz 98/60 Nega tive -?-?-?-?-?-?-?-?-?-?-?-?- Negative 134 -?-?-?-?-?-?-?-?-?-?-?-?- JV- no lof, vagi nal bleeding, or dec fm. Normal GCT. mild anemia but has constipation. 07/13/21 -?-?-?-?-?-?-?-?-?-?-?-?- 29w 2d 209 lb 102/66 Negative -?-?-?-?-?-?-?-?-?-?-?-?- Negative 135 29 -?-?-?-?-?-?-?-?-?-?-?-?- SM- no vb lof go od fm no regular ctx. 07/27/21 -?-?-?-?-?-?-?-?-?-?-?-?- 31w 2d 210 lb 4 oz 112/78 Nega tive -?-?-?-?-?-?-?-?-?-?-?-?- Negative 130 32 -?-?-?-?-?-?-?-?-?-?-?-?- JV- no lof ,vagi nal bleeding or dec fm. normal gct. planning for rpt section due to traumatic 8 hours of pushing during her last . 08/14/21 -?-?-?-?-?-?-?-?-?-?-?-?- 33w 6d 215 lb 114/66 -?-?-?-?-?-?-?--?-?-?-?-?- 135 36 -?-?-?-?-?-?-?-?-?-?-?-?- SM- no vb lof go od fm no regular ctx 08/31/21 -?-?-?-?-?-?-?-?-?-?-?-?- 36w 2d 218 lb 4 oz 100/72 Nega tive -?-?-?-?-?-?-?-?-?-?-?-?- Negative 140 39 -?-?-?-?-?-?-?-?-?-?-?-?- JV - no lof, vag inal bleeding, or dec fm. no complaints. pt thinks she now wants to . chance of success 88% however pushed for 8 hours and baby did not do well after delivery, getting growth scan and will discuss with SM next visit. 09/07/21 -?-?-?-?-?-?-?-?-?-?-?-?- 37w 2d 220 lb 110/72 Negative -?-?-?-?-?-?-?-?-?-?-?-?- Negative 145 39 -?-?-?-?-?-?-?-?-?-?-?-?- SM- no vb lof go od fm no reuglar ctx 09/14/21 -?-?-?-?-?-?-?-?-?-?-?-?- 38w 2d 222 lb 8 oz Negative -?-?-?-?-?-?-?-?-?-?-?-?- Negative 150 40 2 -?-?-?-?-?-?--?-?-?-?-?-?- 50 -3 JV-no lof, vaginal bleeding, or dec fm. rpt section is on saturday unless labor happens in the meantime. 09/19/21 -?-?-?-?-?-?-?-?-?-?-?-?- 39w 0d 121/60 -?-?-?-?-?-?-?-?-?-?-?-?- -?-?-?-?-?-?-?-?-?-?-?-?- NST FHR Rate Baby A Baseline: 140 Variability:: Moderate Accelerations:: 15 x 15 Decelerations:: None NST Reactive:: Yes FHR Category:: Category I Uterine Activity:: q3-5 ROS Constitutional Constitutional: Reports systems reviewed and no addt'l complaints, except as documented ENT HEENT: Reports systems reviewed and no addt'l complaints, except as documented Cardiovascular Cardiovascular: Reports systems reviewed and no addt'l complaints, except as documented Respiratory/Chest Respiratory/Chest: Reports systems reviewed and no addt'l complaints, except as documented Gastrointestinal Gastrointestinal: Reports systems reviewed and no addt'l complaints, except as documented and nausea; Denies abdominal pain Genitourinary Genitourinary: Reports systems reviewed and no addt'l complaints, except as documented, contractions Details: present and frequency (regular ) and movement Details: present Musculoskeletal Musculoskeletal: Reports systems reviewed and no addt'l complaints, except as documented Integumentary Integumentary: Reports as per HPI Neurologic Neurologic: Reports systems reviewed and no addt'l complaints, except as documented Endocrine Endocrinology: Reports systems reviewed and no addt'l complaints, except as documented Vital Signs Vital Signs Vital Signs: 09/19/21 07:37 09/19/21 07:38 Temperature 98.2 F Temperature Source Temporal Pulse Rate 88 90 Blood Pressure 121/60 H BP Systolic 121 BP Diastolic 60 Pulse Ox 97 Physical Exam Const alert, oriented x3 and healthy appearing Constitutional Narrative: uncomfortable with contractions HEENT normocephalic and moist oral mucous membranes Head and Scalp: atraumatic Neck full ROM, no lymphadenopathy, supple and thyroid normal General: trachea midline Thyroid: thyroid normal Lymph Lymphatic: no lymphadenopathy noted Chest inspection of chest normal Resp normal respiratory effort Cardio regular rate GI normal to inspection, nondistended, normoactive bowel sounds, soft to palpation and non-tender Inspection: gravid external exam normal Bimanual Exam - Vag & Uterus: uterus non-tender Manual OB Exam: estimated gestational size appropriate, presentation cephalic, dilated, effaced and station Extremity normal to inspection General Extremity: Negative for edema Skin no rashes or lesions noted Neuro deep tendon reflexes 2+ bilaterally Motor Exam: strength 5/5 throughout and clonus absent Psych mental status grossly normal Labs Labs Labs: Blood Type A POSITIVE Antibody Screen NEGATIVE Hct 32.7 % (37-47) L Hgb 10.8 g/dL (12.0-15.0) L Pap Smear Negative Obstetrics US Syphilis Total Ab Non-reactive Rubella IgG Antibody Reactive (Nonreactive) Hep Bs Antigen Non-Reactive (Nonreactive) Chlamydia DNA (ZAKIA) Negative (Negative) Neisseria gonorrhoeae DNA (ZAKIA) Negative (Negative) HIV 1&2 Antibody Non-Reactive (Nonreactive) Glucose 1 Hr 50 gm 134 mg/dL (70-140) Assessment & Plan (1) Active labor at term: COMMENT: epidural now admit exp management arom PRN (2) Sterilization: COMMENT: title 19 07/13/21 (3) Obesity affecting : COMMENT: 1 tm GCT. 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, antepartum: COMMENT: HIE (5) H/O cannabis abuse: COMMENT: encouraged cessation, random tox, 02/27 positive 04/24 positive (6) At risk for sexually transmitted disease due to partner with genital herpes: COMMENT: HSV titers ordered (7) Family history of congenital anomaly of cardiovascular system: COMMENT: possible; sister came home on heart monitor (8) Family history of clubfoot: COMMENT: sister has a unilateral clubbed foot (9) Supervision of high risk due to social problems: COMMENT: Pt is legally from her , he currently has custody of the boys (10) : QUALIFIERS: Weeks of gestation: 37 weeks Qualified Code(s): Z3A.37 - 37 weeks gestation of COMMENT: desires genetic, carrier- neg and NTD. NIPT low risk Normal anatomy. GBS neg (11) Supervision of other normal : COMMENT: PRR ADEBAYO: 09/26/21, girl, PC: Trip Helms BF: Lucila Cid (12) H/O section: COMMENT: x1; had with 2nd ; desires repeat c/s and BS RLTCS BS scheduled 09/19 @ 1:30 NOW CONSIDERING . CHANCE OF SUCCESS IS 88% - HAS A DULA LINED UP. (13) Anxiety: COMMENT: increase celexa 40mg, recommend counseling and support
[2021-09-19] MEDS: Lactated Ringers 500 ML 999 ML IV ×3 (08:14→14:33)
[2021-09-19 08:35] LABS: Absolute Lymphocyte Count 1.79 X10^3/uL (0.83-4.51); Absolute Neutrophil Count 7.1 X10^3/uL (2.0-7.7); Basophil# 0.03 X10^3/uL; Basophil% 0.3 % (0-1); Hematocrit 32.5 % (37-47); Hemoglobin 10.1 g/dL (12.0-15.0); Lymphocyte # 1.79 X10^3/ul (0.83-4.51); Lymphocyte % 18.6 % (19-41); Mean Corp Hgb Conc 31.1 g/dL (32-36); Mean Corpuscular Hgb 23.6 pg (27.0-32.0); Mean Corpuscular Volume 75.9 fL (81-99); Mean Platelet Vol. 10.4 fl (6.2-12.0); Monocyte# 0.52 X10^3/uL; Monocyte% 5.4 % (0-10); NRBC Flagged by Analyzer 0 % (0-5); Neutrophil # 7.09 X10^3/uL (2.7-7.7); Neutrophil % 73.7 % (47-70); Platelet Count 188 K/mm3 (150-450); RBC Distribution Width CV 15.1 % (11.6-14.6); Red Blood Count 4.28 M/mm3 (4.2-5.4); White Blood Count 9.6 K/mm3 (4.4-11.0)
[2021-09-19] MEDS: Lactated Ringers 1,000 ML 50 ML IV (08:45)
[2021-09-19] MEDS: fentaNYL-bupivacaine (epidural) 100 ML BAG EPIDURAL ×2 (10:02→14:23)
[2021-09-19] MEDS: Mag Hydrox/Al Hydrox/Simeth 30 ML UDC PO (11:16)
[2021-09-19 11:34] LABS: Amphetamine Urine VISTA NEGATIVE (<1000 ng/mL); Barbiturate Urine VISTA NEGATIVE (< 200 ng/mL); Benzodiazepine Urine VISTA NEGATIVE (< 200 ng/mL); Cocaine Urine VISTA NEGATIVE (< 300 ng/mL); Ecstacy Urine VISTA NEGATIVE (< 500 ng/mL); Methadone Urine VISTA NEGATIVE (< 300 ng/mL); PCP Urine VISTA NEGATIVE (< 25 ng/mL); THC Urine VISTA NEGATIVE (< 50 ng/mL); Vista UDS pH Range 6
[2021-09-19] MEDS: 0.9% Saline Lock 10 ML Syringe IV (11:53)
[2021-09-19] MEDS: Lactated Ringers 1,000 ML 200 ML IV (13:05)
[2021-09-19] MEDS: Ondansetron 4 MG/2 ML Vial IV (16:21)
[2021-09-19] MEDS: Oxytocin 30 units/NS 500 ml 30 UNITS/500 ML IV.SOLN 334 UNITS IV (16:31)
--- NOTE | 2021-09-19 17:24 | EX.PCM.OBRPT ---
Assessment & Plan (1) Active labor at term: COMMENT: epidural now admit exp management arom PRN (2) Sterilization: COMMENT: title 19 07/13/21 (3) Obesity affecting : COMMENT: 1 tm GCT. 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, antepartum: COMMENT: HIE (5) H/O cannabis abuse: COMMENT: encouraged cessation, random tox, 02/27 positive 11/ positive (6) At risk for sexually transmitted disease due to partner with genital herpes: COMMENT: HSV titers ordered (7) Family history of congenital anomaly of cardiovascular system: COMMENT: possible; sister came home on heart monitor (8) Family history of clubfoot: COMMENT: sister has a unilateral clubbed foot (9) Supervision of high risk due to social problems: COMMENT: Pt is legally from her , he currently has custody of the boys (10) : QUALIFIERS: Weeks of gestation: 37 weeks Qualified Code(s): Z3A.37 - 37 weeks gestation of COMMENT: desires genetic, carrier- neg / and NTD. NIPT low risk Normal anatomy. GBS neg (11) Supervision of other normal : COMMENT: PRR ADEBAYO: 09/26/21, girl, PC: Trip Helms [facility] (12) H/O section: COMMENT: x1; had with 2nd ; desires repeat c/s and BS RLTCS BS scheduled 09/19 @ 1:30 NOW CONSIDERING . CHANCE OF SUCCESS IS 88% - HAS A DULA LINED UP. (13) Anxiety: COMMENT: increase celexa 40mg, recommend counseling and support (14) Vaginal after : COMMENT: SM 39 girl lidya Maternal Data Information ADEBAYO Calculator Estimated Delivery Date Method Current WG Current Estimate 09/26/21 LMP (Certain) 39w 0d Vaginal Delivery Operative Information Date of Procedure: 09/19/21 Pre-Operative Diagnosis: IAL Post-Operative Diagnosis: same Surgery / Procedure Performed: Type of Anesthesia: Epidural Special Medications: none Estimated Blood Loss: 300 Fluids Replaced: crystalloid Findings Description of Procedure: Patient began pushing and delivered the head in the NAKIA presentation. The head was delivered atraumatically and a loose nuchal cord ?1 was identified and the delivered through without complication. The anterior and posterior shoulders delivered without complication followed by the rest of the infant and the was placed on the maternal abdomen. Delayed cord clamping was employed for approximately 60 seconds. Cord was clamped and cut and gentle traction was applied to the cord and the placenta delivered spontaneously immediately following it was noted to be intact with three-vessel cord. The perineum and vagina were inspected and second degree laceration repaired in the usual fashion 3-0 vicryl rapide. EBL was 300cc. Patient and tolerated delivery well. Presentation: NAKIA Amniotic Membrane Rupture Type: Artificial Placental Delivery Description: Spontaneous Placenta Disposition: [facility] Cord Vessel Description: 3 Vessels Cord Entanglement: None Delayed Cord Clamping: Yes Post Vaginal Delivery Medications Given After Delivery: IV Pitocin Episiotomy Description: None Laceration: 2nd degree Complication Complications: None Procedures Urinary/Genital [id number]: [id number] care after delivery(JIMBO)
--- NOTE | 2021-09-19 17:27 | PCM.DC ---
Discharge Instructions Diet Discharge Diet: No restrictions Activity Discharge Activity: Return to Normal Activity, May Not Drive (while taking narcotic pain medications.) and May Shower May resume sexual activity in: 4-6 weeks Dressing / Incision Call your doctor if your incision/area has: Continuous Slow Oozing, Sudden Increased Bleeding, Increased Pain/ Swelling, Increased Redness and Foul Smelling Discharge Follow Up Care Please Follow Up With: Radha Ceron MD When: Call [phone] to make an appointment with your doctor in 6 weeks. If you had elevated blood pressure or 4th degree laceration, you will need to be seen in 2 weeks. Test Results: Test results from this visit will be discussed in further detail at your follow-up appointment, if applicable. Discharge Plan Admission Admit Date/Time: 09/19/21 07:20 Attending Provider: Radha Ceron Primary Care Provider: Care Physician,Jessica Primary Discharge Orders/Prescriptions Prescriptions: No Action PNV Tabs 20-1 20 mg iron- 1 mg tablet PO DAILY RF: 0 citalopram [Celexa] 40 mg tablet 40 mg PO DAILY RF: 0
[2021-09-20] VITALS (10 sets, daily range): BP systolic 101–126; BP diastolic 55–72; PULSE 71–86; RESP 16–18; TEMP 36.3–37.2; O2SAT 96
[2021-09-20] MEDS: Acetaminophen 500 MG Tablet 1000 MG PO ×3 (00:19→15:30)
--- NOTE | 2021-09-20 08:51 | PCM.PN.OB ---
Subjective Subjective Patient doing well without complaints. Tolerating PO. Ambulating without difficulty. Feeding well. Denies chest pain, shortness of breath, calf pain/swelling, fevers, chills, lightheadedness. Has not voided yet, straight cath middle of night. Objective Data Objective Data Vital Signs: Vital Signs Temp Pulse Resp BP Pulse Ox 98.1 F 86 16 110/62 98 09/20/21 08:27 09/20/21 08:27 09/20/21 04:19 09/20/21 08:27 09/19/21 18:46 Oxygen Delivery Method Room Air Weight: 221 lb 6.4 oz Body Mass Index (BMI) 36.8 Intake & Output: Intake and Output for Last 24 Hours 09/18/21 09/19/21 09/20/21 23:59 23:59 23:59 Intake Total 4294.17 / 4294.17 400 / 400 Output Total 1000 / 1000 900 / 900 Balance 3294.17 / 3294.17 -500 / -500 Lab / Micro Data Result Diagrams: 09/19/21 08:15 Labs: Laboratory Results - last 24 hr 09/19/21 08:15: Blood Type A POSITIVE, Antibody Screen NEGATIVE 09/19/21 10:53: Urine Opiates Screen NEGATIVE, Urine Methadone Screen NEGATIVE, Ur Barbiturates Screen NEGATIVE, Ur Phencyclidine Scrn NEGATIVE, Ur Amphetamines Screen NEGATIVE, MDMA (Ecstasy) Screen NEGATIVE, U Benzodiazepines Scrn NEGATIVE, Urine Cocaine Screen NEGATIVE, U Cannabinoids Screen NEGATIVE, Ur Drug Screen Comment Micro: Microbiology 09/19/21 08:15 Nasal Secretion SARS-CoV-2 Antigen (Rapid) - Final Physical Exam Const alert and oriented x3 HEENT normocephalic Eyes PERRL Neck full ROM Resp normal respiratory effort GI soft to palpation GI Narrative: FF below U Assessment & Plan (1) Vaginal after : COMMENT: 39 girl lidya (2) Sterilization: COMMENT: title 19 07/13/21; wants after 6 wk pp (3) Anxiety: COMMENT: increase celexa 40mg, recommend counseling and support; stable PLAN: s/p VAVD PPD # 2 1. routine post delivery care 2. breast feeding- support given 3. rh positive 4. rubella immune 5. wants bilat salpingectomy after 6 wk pp 6. Enc fluids in order to void 7. plans home today
[2021-09-20] MEDS: Naproxen 500 MG Tablet PO ×2 (11:22→22:14)
--- NOTE | 2021-09-20 12:00 | NURSING ---
RN attempted to get pt to urinate. Pt passed stool and some drops of urine. Will notify provider.
[2021-09-20] MEDS: Citalopram 40 MG TABLET PO (14:58)
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
[2021-09-21] VITALS (7 sets, daily range): BP systolic 105–123; BP diastolic 57–74; PULSE 75–97; RESP 16–18; TEMP 36.5–37.5
[2021-09-21] MEDS: Acetaminophen 500 MG Tablet 1000 MG PO (08:32)
--- NOTE | 2021-09-21 09:15 | CASEMGMT ---
Social Work Labor and Delivery Chart reviewed and noted that infant's urine collection was cancelled due to missing three urine collections in the cotton ball. Called [facility] at [phone] and spoke with Ivy in the intake screening department. Referral given due to substance exposure to in utero. Brief maternal and infant histories providing including other potential dependency concerns (including maternal mental health and paternal substance use history). Ivy updated to plan for discharge today if all is well for the mother of baby. No other services requested or indicated other than monitoring for meconium drug screen results. -MARTÍNEZ Delgado, DEVELOPMENTAL EDUCATION INSTRUCTOR
[2021-09-21] MEDS: Citalopram 40 MG TABLET PO (09:59)
[2021-09-22 07:35] VITALS: BP 113/56; PULSE 83
[2021-09-22 07:36] VITALS: TEMP 36.6
[2021-09-22 07:45] VITALS: O2SAT 98
--- NOTE | 2021-09-28 07:00 | DS.PCM_ITS ---
Providers Date of Admission: 09/19/21 Primary Care Physician: Jessica Primary Care Phys Reason For Visit: VAGINAL DELIVERY Diagnosis Discharge Diagnosis (1) Vaginal after : Status: Inactive Code(s): O34.219 - Maternal care for unspecified type scar from previous delivery (2) Sterilization: Status: Acute Code(s): Z30.2 - Encounter for sterilization (3) Anxiety: Status: Acute Code(s): F41.9 - Anxiety disorder, unspecified Medications at Discharge Home Medications vitamins no.163-iron bis-gly 20 mg-folate no.10 1 mg tablet tab PO DAILY 02/08/21 citalopram [Celexa] 40 mg PO DAILY 09/19/21 Hospital Course Summary of Care Provided Hospital Course: admitted IAL for TOLAC proceeded to have successfully. discharged home on PPD 2 without complication Weight / BMI Weight Weight: 221 lb 6.4 oz Body Mass Index (BMI) 36.8 ABG / Lab / Microbiology Data Result Diagrams: 09/19/21 08:15 Microbiology: Microbiology 09/19/21 08:15 Nasal Secretion SARS-CoV-2 Antigen (Rapid) - Final D/C Instructions Discharge Diet: No restrictions May resume sexual activity in: 4-6 weeks Call your doctor if your incision/area has: Continuous Slow Oozing, Sudden Incr eased Bleeding, Increased Pain/ Swelling, Increased Redness and Foul Smelling Discharge Please Follow Up With: Radha Ceron MD When: Call [phone] to make an appointment with your doctor in 6 weeks. If you had elevated blood pressure or 4th degree laceration, you will need to be seen in 2 weeks. Meaningful Use Info Meaningful Use Diagnoses (Choose all that apply): None applicable Discharge Plan Admission Admit Date/Time: 09/19/21 07:20 Attending Provider: Radha Ceron Primary Care Provider: Care Physician,No Primary Instructions Patient Instructions: After a Vaginal Discharge Orders/Prescriptions Prescriptions: No Action PNV Tabs 20-1 20 mg iron- 1 mg tablet PO DAILY RF: 0 citalopram [Celexa] 40 mg tablet 40 mg PO DAILY RF: 0 Referrals / Follow Up: Care Physician,No Primary [Primary Care Provider] -
== END 2021-09-21 15:30 | disposition home or self-care (01) | DRG 560 ==
PROVIDERS: Obstetrics & Gynecology; Admitting Provider Obstetrics & Gynecology; Visit Provider Obstetrics & Gynecology
PROC: (CPT 59514; principal; 2021-09-19 13:15)
DX: O70.1 Second degree perineal laceration during delivery (principal); Z37.0 Single live birth; O99.324 Drug use complicating childbirth; F12.90 Cannabis use, unspecified, uncomplicated; F41.8 Other specified anxiety disorders; Z3A.37 37 weeks gestation of pregnancy; Z87.891 Personal history of nicotine dependence; O69.81X0 Labor and delivery complicated by cord around neck, without compression, not applicable or unspecified; Z60.9 Problem related to social environment, unspecified; O34.219 Maternal care for unspecified type scar from previous cesarean delivery; O99.344 Other mental disorders complicating childbirth; Z30.2 Encounter for sterilization; Z82.69 Family history of other diseases of the musculoskeletal system and connective tissue; Z82.79 Family history of other congenital malformations, deformations and chromosomal abnormalities; F32.A Depression, unspecified; O99.214 Obesity complicating childbirth; E66.9 Obesity, unspecified
CPT/HCPCS: 59025; 59050; 80307; 85025; 86850; 86900; 86901; 87426; 99218; J7120; A4216; G0378; J2405

== ENCOUNTER → 2021-11-03 | Outpatient (CLI) | payer MEDICAID, SELFPAY ==
[2021-11-03 12:38] LABS: T4 Free Direct 0.94 ng/dL (0.76-1.46); Thyroid Stim Hormone (TSH) 1.39 uIU/mL (0.358-3.74)
== END | disposition home or self-care (01) ==
LOC: PAVLAB 11:41
PROVIDERS: Referring Provider Obstetrics & Gynecology; Visit Provider Obstetrics & Gynecology
DX: E01.0 Iodine-deficiency related diffuse (endemic) goiter (principal)
CPT/HCPCS: 36415; 84439; 84443

== ENCOUNTER → 2023-04-15 | Outpatient (CLI) | payer MEDICAID, SELFPAY ==
[2023-04-19 13:07] LABS: HPV APTIMA, High Risk Negative (Negative)
== END | disposition home or self-care (01) ==
LOC: LABSPEC 16:06
PROVIDERS: Referring Provider Registered Nurse; Visit Provider Registered Nurse
DX: Z12.4 Encounter for screening for malignant neoplasm of cervix (principal)
CPT/HCPCS: 87624; 88175; G0145

== ENCOUNTER → 2024-10-26 | Outpatient (CLI) | payer SELFPAY ==
[2024-10-29 06:07] LABS: Chlamydia By Nucleic Acid AMP Negative (Negative); Gonococcus By Nucleic Acid AMP Negative (Negative)
== END | disposition home or self-care (01) ==
LOC: LABSPEC 15:40
PROVIDERS: Referring Provider Obstetrics & Gynecology; Visit Provider Obstetrics & Gynecology
DX: Z11.3 Encounter for screening for infections with a predominantly sexual mode of transmission (principal)
CPT/HCPCS: 87491; 87591